=== PATIENT | female | born 1970 | race Caucasian/White ===

== ENCOUNTER 2019-01-04 19:43 | Emergency (ER) | payer OTHER ==
[~2019-01-04] VITALS: Ht 157.5 cm; Wt 56.4 kg
[2019-01-04 19:52] VITALS: Ht 157.5 cm; Wt 56.4 kg
[2019-01-04] MEDS ORDERED: IBUPROFEN800 MG PO (19:55)
[2019-01-04] MEDS ORDERED: VOLTAREN75 MG PO (21:21)
[2019-01-04] MEDS ORDERED: BACLOFEN20 M1 PO (21:21)
[2019-01-04 22:20] VITALS: BP 129/74
== END 2019-01-04 22:20 | disposition home or self-care (01) ==
LOC: D.ER 19:43
DX: M54.2 Cervicalgia (principal); R51 Headache; V89.2XXA Person injured in unspecified motor-vehicle accident, traffic, initial encounter